=== PATIENT | female | born 1975 | race African-American/Black ===

== ENCOUNTER 2019-03-23 16:38 | Inpatient (IN) ==
[2019-03-23] MEDS ORDERED: MAGNESIUM SULF RIDER 4 GM in PREMIX 1 EACH IV PRN (19:02)
[2019-03-23] MEDS ORDERED: MAGNESIUM SULF RIDER 2 GM in PREMIX 1 EACH IV PRN (19:02)
[2019-03-23] MEDS ORDERED: hydrALAZINE 20 MG/1 ML VIAL IV PRN (19:11)
[2019-03-23 20:02] LABS: Basophils # 0.1 10*3/uL (0.0-0.2); Basophils % 0.5 % (0.0-0.8); Eosinophils # 0.1 10*3/uL (0.0-0.87); Eosinophils % 0.5 % (0.00-10.9); Hematocrit 29.8 VOL% (35.7-47.0); Hemoglobin 8.8 GM/DL (12.0-16.0); Immature Granulocytes % 0.5 %; Immature Granulocytes Absolute 0.06 #; Lymphocytes # 2.4 10*3/uL (1.4-4.0); Lymphocytes % 21.6 % (21.3-54.2); Mean Corpuscular HGB Conc 29.5 GM/DL (32-36); Mean Corpuscular Volume 71.8 FL (87-102); Monocytes % 6.4 % (1.7-12.7); Neutrophils % 70.5 % (38.7-73.9); Platelet Count 360 T/CUMM (130-400); Red Blood Count 4.15 MC/CUMM (3.8-5.5); Red Cell Distribution Width 18.4 % (9.3-17.3); White Blood Count 11.2 T/CUMM (4-12)
[2019-03-23 20:31] LABS: Albumin 3.1 G/DL (3.4-5.0); Bilirubin,Total 0.8 MG/DL (0.2-1.0); Calcium 8.2 MG/DL (8.5-10.1); Osmolality,Calculated 272.8 MOS/KG (273-304); Thyroid Stimulating Hormone 0.339 uIU/ml (0.358-3.74); Total Protein 6.6 G/DL (6.4-8.3)
[2019-03-23] MEDS: CIPROFLOXACIN INJ 400 MG in PREMIX 1 EACH IV SCH (20:34)
[2019-03-23] MEDS: SODIUM CHLORIDE 0.45% 1,000 ML IV SCH (20:34)
[2019-03-23] MEDS: ENOXAPARIN 40 MG/0.4 ML SYRINGE SUBCUT SCH (20:35)
[2019-03-23] MEDS: POTASSIUM CHLORIDE RIDER 10 MEQ in PREMIX 1 EACH IV PRN ×2 (22:04→23:13)
[2019-03-23] MEDS: METOCLOPRAMIDE 10 MG/2 ML VIAL IV SCH (23:12)
[2019-03-24] MEDS: POTASSIUM CHLORIDE RIDER 10 MEQ in PREMIX 1 EACH IV PRN ×6 (00:10→23:24)
[2019-03-24 05:36] LABS: Apearance,Urine CLEAR (Clear); Bilirubin,Urine Negative (Negative); Blood, Urine Negative (Negative); Glucose,Urine (UA) Negative (Negative); Ketones,Urine 20 mg/dL (Negative); Mucus,Urine Occasional /LPF (Occasional); Nitrite,Urine Negative (Negative); Protein,Urine Negative; RBC,Urine <1 /HPF (0-4); Squamous Epithelial Cell,Urine Occasional /HPF (0-10); Urine Color Yellow (Yellow); Urine Specific Gravity > 1.060 (1.001-1.035); Urine Urobilinogen < 2.0 EU/DL (0.2-1.0); WBC,Urine 1 /HPF (0-6)
[2019-03-24] MEDS: METOCLOPRAMIDE 10 MG/2 ML VIAL IV SCH ×4 (06:00→23:22)
[2019-03-24] MEDS: SODIUM CHLORIDE 0.45% 1,000 ML IV SCH ×3 (06:00→22:00)
[2019-03-24 06:45] LABS: Basophils # 0.1 10*3/uL (0.0-0.2); Basophils % 0.9 % (0.0-0.8); Eosinophils # 0.2 10*3/uL (0.0-0.87); Eosinophils % 1.6 % (0.00-10.9); Hematocrit 29.1 VOL% (35.7-47.0); Hemoglobin 8.4 GM/DL (12.0-16.0); Immature Granulocytes % 0.6 %; Immature Granulocytes Absolute 0.06 #; Lymphocytes # 3.3 10*3/uL (1.4-4.0); Lymphocytes % 35.2 % (21.3-54.2); Mean Corpuscular HGB Conc 28.9 GM/DL (32-36); Mean Corpuscular Volume 72.9 FL (87-102); Mean Platelet Volume 10.4 FL (9.6-12.0); Monocytes % 6.4 % (1.7-12.7); Neutrophils % 55.3 % (38.7-73.9); Platelet Count 347 T/CUMM (130-400); Red Blood Count 3.99 MC/CUMM (3.8-5.5); Red Cell Distribution Width 18.6 % (9.3-17.3); White Blood Count 9.3 T/CUMM (4-12)
[2019-03-24 07:14] LABS: Anisocytosis 2+; Hypochromasia 3+; Microcytosis 2+; Ovalocytes Few; Polychromasia Few
[2019-03-24 07:15] LABS: Platelet Estimate Normal
[2019-03-24 07:16] LABS: Albumin 2.8 G/DL (3.4-5.0); Bilirubin,Total 0.9 MG/DL (0.2-1.0); Calcium 8.4 MG/DL (8.5-10.1); Osmolality,Calculated 268.1 MOS/KG (273-304); Risk Ratio 3.63; Total Protein 6.1 G/DL (6.4-8.3)
[2019-03-24] MEDS: CIPROFLOXACIN INJ 400 MG in PREMIX 1 EACH IV SCH (09:15)
[2019-03-24] MEDS: PANTOPRAZOLE 40 MG VIAL IV SCH (09:16)
[2019-03-24] MEDS: PROMETHAZINE 25 MG/1 ML VIAL IM PRN (18:06)
[2019-03-24] MEDS: ENOXAPARIN 40 MG/0.4 ML SYRINGE SUBCUT SCH (20:45)
[2019-03-24] MEDS: ONDANSETRON 4 MG/2 ML VIAL IV PRN (20:51)
[2019-03-24] MEDS: MORPHINE 4 MG/1 ML VIAL IV PRN (21:33)
[2019-03-25] MEDS: POTASSIUM CHLORIDE RIDER 10 MEQ in PREMIX 1 EACH IV PRN ×8 (00:27→20:02)
[2019-03-25] MEDS: SODIUM CHLORIDE 0.45% 1,000 ML IV SCH ×5 (01:16→20:22)
[2019-03-25] MEDS: METOCLOPRAMIDE 10 MG/2 ML VIAL IV SCH ×4 (05:25→23:39)
[2019-03-25] MEDS: ONDANSETRON 4 MG/2 ML VIAL IV PRN (06:03)
[2019-03-25 06:29] LABS: Basophils # 0.1 10*3/uL (0.0-0.2); Basophils % 0.7 % (0.0-0.8); Eosinophils # 0.1 10*3/uL (0.0-0.87); Eosinophils % 0.8 % (0.00-10.9); Hematocrit 30.7 VOL% (35.7-47.0); Hemoglobin 8.9 GM/DL (12.0-16.0); Immature Granulocytes % 0.6 %; Immature Granulocytes Absolute 0.06 #; Lymphocytes # 2.6 10*3/uL (1.4-4.0); Lymphocytes % 27.3 % (21.3-54.2); Mean Corpuscular Volume 73.4 FL (87-102); Mean Platelet Volume 9.9 FL (9.6-12.0); Monocytes % 6.6 % (1.7-12.7); Platelet Count 348 T/CUMM (130-400); Red Blood Count 4.18 MC/CUMM (3.8-5.5); Red Cell Distribution Width 18.5 % (9.3-17.3); White Blood Count 9.5 T/CUMM (4-12)
[2019-03-25 06:44] LABS: Basophils # 0.1 10*3/uL (0.0-0.2); Basophils % 0.7 % (0.0-0.8); Eosinophils # 0.1 10*3/uL (0.0-0.87); Eosinophils % 0.9 % (0.00-10.9); Hematocrit 30.6 VOL% (35.7-47.0); Hemoglobin 8.9 GM/DL (12.0-16.0); Immature Granulocytes % 0.6 %; Immature Granulocytes Absolute 0.06 #; Lymphocytes # 2.7 10*3/uL (1.4-4.0); Mean Corpuscular HGB Conc 29.1 GM/DL (32-36); Mean Corpuscular Volume 73.2 FL (87-102); Mean Platelet Volume 10.3 FL (9.6-12.0); Monocytes % 6.3 % (1.7-12.7); Neutrophils % 63.5 % (38.7-73.9); Platelet Count 345 T/CUMM (130-400); Red Blood Count 4.18 MC/CUMM (3.8-5.5); Red Cell Distribution Width 18.7 % (9.3-17.3); White Blood Count 9.6 T/CUMM (4-12)
[2019-03-25 07:02] LABS: Albumin 2.8 G/DL (3.4-5.0); Bilirubin,Total 0.8 MG/DL (0.2-1.0); Calcium 7.7 MG/DL (8.5-10.1); Osmolality,Calculated 274.4 MOS/KG (273-304); Total Protein 6.1 G/DL (6.4-8.3)
[2019-03-25 07:05] LABS: % Iron Saturation 7.1 % (18-50); Ferritin 9.5 ng/ml (8-252)
[2019-03-25 08:32] LABS: Anisocytosis Slight; Band Neutrophils 3 % (0-10); Eosinophils 2 % (0-10); Lymphocytes 29 % (20-55); Platelet Estimate Normal; Segmented Neutrophils 61 % (50-85); Total Cells Counted 100
[2019-03-25] MEDS: PANTOPRAZOLE 40 MG VIAL IV SCH (08:57)
[2019-03-25 11:13] LABS: Sedimentation Rate-Westergren 14 MM/HR (0-20)
[2019-03-25] MEDS ORDERED: IRON SUCROSE 300 MG in SODIUM CHLORIDE 0.9% 100 ML IV ONE (14:30)
[2019-03-25] MEDS: AZITHROMYCIN INJ 500 MG in SODIUM CHLORIDE 0.9% 250 ML IV SCH (15:27)
[2019-03-25] MEDS: LISINOPRIL/HCTZ 20-12.5 MG TABLET PO SCH (15:27)
[2019-03-25] MEDS: MORPHINE 4 MG/1 ML VIAL IV PRN (18:01)
[2019-03-25] MEDS: PROMETHAZINE 25 MG/1 ML VIAL IM PRN (18:02)
[2019-03-25] MEDS: ENOXAPARIN 40 MG/0.4 ML SYRINGE SUBCUT SCH (20:23)
[2019-03-26] MEDS: ONDANSETRON 4 MG/2 ML VIAL IV PRN (03:29)
[2019-03-26] MEDS: MORPHINE 4 MG/1 ML VIAL IV PRN (03:29)
[2019-03-26] MEDS: SODIUM CHLORIDE 0.45% 1,000 ML IV SCH ×4 (03:37→21:54)
[2019-03-26 05:22] LABS: Basophils # 0.1 10*3/uL (0.0-0.2); Basophils % 0.8 % (0.0-0.8); Eosinophils # 0.1 10*3/uL (0.0-0.87); Eosinophils % 1.4 % (0.00-10.9); Hematocrit 32.2 VOL% (35.7-47.0); Hemoglobin 9.4 GM/DL (12.0-16.0); Immature Granulocytes % 0.8 %; Immature Granulocytes Absolute 0.07 #; Lymphocytes % 22.5 % (21.3-54.2); Mean Corpuscular HGB Conc 29.2 GM/DL (32-36); Mean Corpuscular Volume 73.7 FL (87-102); Mean Platelet Volume 10.1 FL (9.6-12.0); Monocytes % 7.1 % (1.7-12.7); Neutrophils % 67.4 % (38.7-73.9); Platelet Count 368 T/CUMM (130-400); Red Blood Count 4.37 MC/CUMM (3.8-5.5); Red Cell Distribution Width 18.6 % (9.3-17.3); White Blood Count 8.7 T/CUMM (4-12)
[2019-03-26] MEDS: METOCLOPRAMIDE 10 MG/2 ML VIAL IV SCH ×3 (05:39→17:51)
[2019-03-26 05:47] LABS: Albumin 3.2 G/DL (3.4-5.0); Bilirubin,Total 0.8 MG/DL (0.2-1.0); Calcium 8.8 MG/DL (8.5-10.1); Total Protein 6.8 G/DL (6.4-8.3)
[2019-03-26] MEDS: POTASSIUM CHLORIDE RIDER 10 MEQ in PREMIX 1 EACH IV PRN ×4 (07:56→13:38)
[2019-03-26 08:57] LABS: Hemoglobin A1 (Alkaline) 97.2 % (96.5-98.5); Hemoglobin A2 (Alkaline) 2.8 % (1.5-3.5)
[2019-03-26] MEDS: LISINOPRIL/HCTZ 20-12.5 MG TABLET PO SCH (10:41)
[2019-03-26] MEDS: PANTOPRAZOLE 40 MG VIAL IV SCH (10:42)
[2019-03-26] MEDS: AZITHROMYCIN INJ 500 MG in SODIUM CHLORIDE 0.9% 250 ML IV SCH (15:01)
[2019-03-26 17:18] LABS: Folate 6.9 NG/ML (5.4-24.0); Vitamin B12 510 PG/ML (211-911)
[2019-03-27] MEDS: METOCLOPRAMIDE 10 MG/2 ML VIAL IV SCH ×3 (01:14→11:54)
[2019-03-27] MEDS: SODIUM CHLORIDE 0.45% 1,000 ML IV SCH ×2 (03:00→13:15)
[2019-03-27 05:44] LABS: Calcium 7.7 MG/DL (8.5-10.1); Osmolality,Calculated 270.8 MOS/KG (273-304)
[2019-03-27 05:59] LABS: Free T4 (Free Thyroxine) 1.45 NG/DL (0.76-1.46); Thyroid Stimulating Hormone 1.08 uIU/ml (0.358-3.74)
[2019-03-27] MEDS ORDERED: LACTATED RINGERS 1,000 ML IV SCH (08:00)
[2019-03-27] MEDS ORDERED: propofoL 200 MG/20 ML VIAL IV ONE (10:00)
[2019-03-27] MEDS ORDERED: LIDOCAINE 2% 5 ML VIAL ONE (10:00)
[2019-03-27 11:37] VITALS: BP 118/68
[2019-03-27] MEDS: LISINOPRIL/HCTZ 20-12.5 MG TABLET PO SCH (11:54)
[2019-03-27] MEDS: PANTOPRAZOLE 40 MG VIAL IV SCH (11:58)
[2019-03-27] MEDS ORDERED: CHOLECALCIFEROL 1,000 UNIT TABLET PO SCH (13:00)
[2019-03-27] MEDS: AZITHROMYCIN INJ 500 MG in SODIUM CHLORIDE 0.9% 250 ML IV SCH (13:14)
[2019-03-27] MEDS ORDERED: METOCLOPRAMIDE 10 MG TABLET PO SCH (16:30)
[2019-03-27] MEDS ORDERED: PANTOPRAZOLE 40 MG TABLET PO SCH (21:00)
[2019-03-28] MEDS ORDERED: AZITHROMYCIN 250 MG TABLET PO SCH (09:00)
[2019-03-28 15:41] LABS: Free Thyroxine Index 8.6 mcg/dL (4.8 - 12.7)
== END 2019-03-27 14:20 | disposition home or self-care (01) | DRG 392 ==
LOC: SUATTDRO 18:13 → N.5E 18:13
PROVIDERS: ADMIT Internal Medicine; ATTEND Hospitalist

== ENCOUNTER 2019-08-05 14:35 | Observation (INO) ==
[2019-08-05 15:41] LABS: Basophils # 0.1 10*3/uL (0.0-0.2); Basophils % 0.6 % (0.0-0.8); Eosinophils % 0.3 % (0.00-10.9); Hematocrit 38.5 VOL% (35.7-47.0); Hemoglobin 11.3 GM/DL (12.0-16.0); Immature Granulocytes % 0.5 %; Immature Granulocytes Absolute 0.06 #; Lymphocytes # 1.8 10*3/uL (1.4-4.0); Lymphocytes % 15.4 % (21.3-54.2); Mean Corpuscular HGB Conc 29.4 GM/DL (32-36); Mean Corpuscular Volume 73.1 FL (87-102); Mean Platelet Volume 9.8 FL (9.6-12.0); Monocytes % 5.4 % (1.7-12.7); Neutrophils % 77.8 % (38.7-73.9); Platelet Count 498 T/CUMM (130-400); Red Blood Count 5.27 MC/CUMM (3.8-5.5); Red Cell Distribution Width 19.7 % (9.3-17.3); White Blood Count 11.9 T/CUMM (4-12)
[2019-08-05 16:01] LABS: Apearance,Urine CLEAR (Clear); Bacteria,Urine Occasional /HPF (Few); Bilirubin,Urine Negative (Negative); Blood, Urine Moderate mg/dL (Negative); Glucose,Urine (UA) Negative (Negative); Ketones,Urine 80 mg/dL (Negative); Mucus,Urine Few /LPF (Occasional); Nitrite,Urine Negative (Negative); Protein,Urine 30 MG/DL; RBC,Urine 2 /HPF (0-4); Squamous Epithelial Cell,Urine Occasional /HPF (0-10); Urine Color Yellow (Yellow); Urine Specific Gravity 1.033 (1.001-1.035); WBC,Urine 2 /HPF (0-6)
[2019-08-05 16:12] LABS: Albumin 4.3 G/DL (3.4-5.0); Bilirubin,Total 1.4 MG/DL (0.2-1.0); Calcium 10.2 MG/DL (8.5-10.1); Osmolality,Calculated 267.4 MOS/KG (273-304); Total Protein 9.2 G/DL (6.4-8.3)
[2019-08-05] MEDS ORDERED: MORPHINE 4 MG/1 ML VIAL IV STA (16:14)
[2019-08-05] MEDS ORDERED: ONDANSETRON 4 MG/2 ML VIAL IV STA ×2 (16:15→19:37)
[2019-08-05] MEDS ORDERED: PROMETHAZINE 25 MG/1 ML VIAL IM PRN (18:04)
[2019-08-05] MEDS ORDERED: GLUCAGON 1 MG VIAL IM PRN (18:04)
[2019-08-05] MEDS ORDERED: DEXTROSE 50% 25 GM/50 ML VIAL IV PRN (18:04)
[2019-08-05] MEDS ORDERED: hydrALAZINE 20 MG/1 ML VIAL IV PRN (18:10)
[2019-08-05] MEDS ORDERED: POTASSIUM CHLORIDE 20 MEQ TABLET PO PRN (18:13)
[2019-08-05] MEDS ORDERED: SODIUM CHLORIDE 0.9% 1,000 ML IV SCH (18:30)
[2019-08-05] MEDS: MORPHINE 4 MG/1 ML VIAL IV PRN (20:40)
[2019-08-05] MEDS: ENOXAPARIN 40 MG/0.4 ML SYRINGE SUBCUT SCH (20:41)
[2019-08-05] MEDS: DEXT 5% NACL 0.45% KCL 40 MEQ 40 MEQ/1,000 ML BAG IV SCH (20:41)
[2019-08-05] MEDS ORDERED: NITROGLYCERIN SL 0.4 MG TABLET SL ONE (23:28)
[2019-08-05] MEDS ORDERED: ASPIRIN CHEW 81 MG TABLET PO ONE (23:28)
[2019-08-05] MEDS: ONDANSETRON 4 MG/2 ML VIAL IV PRN (23:30)
[2019-08-05] MEDS ORDERED: NITROGLYCERIN SL 0.4 MG TABLET SL PRN (23:34)
[2019-08-05] MEDS ORDERED: LORazepam 2 MG/1 ML VIAL ONE (23:36)
[2019-08-06] MEDS ORDERED: ASPIRIN CHEW 81 MG TABLET PO ONE
[2019-08-06] MEDS ORDERED: LORazepam 2 MG/1 ML VIAL IV ONE
[2019-08-06] MEDS ORDERED: METOPROLOL TARTRATE 5 MG/5 ML VIAL IV ONE (00:25)
[2019-08-06] MEDS ORDERED: ADENOSINE 6 MG/2 ML VIAL IV ONE ×2 (00:30→00:40)
[2019-08-06] MEDS ORDERED: ACETAMINOPHEN 325 MG TABLET PO PRN (00:33)
[2019-08-06] MEDS ORDERED: LABETALOL 20 MG/4 ML SYRINGE IV PRN (03:16)
[2019-08-06] MEDS ORDERED: LABETALOL 100 MG/20 ML VIAL IV PRN (07:30)
[2019-08-06 08:39] LABS: Basophils # 0.1 10*3/uL (0.0-0.2); Basophils % 0.5 % (0.0-0.8); Eosinophils # 0.1 10*3/uL (0.0-0.87); Eosinophils % 1.3 % (0.00-10.9); Hematocrit 34.6 VOL% (35.7-47.0); Immature Granulocytes % 0.5 %; Immature Granulocytes Absolute 0.05 #; Lymphocytes # 2.6 10*3/uL (1.4-4.0); Lymphocytes % 26.7 % (21.3-54.2); Mean Corpuscular HGB Conc 29.5 GM/DL (32-36); Mean Platelet Volume 9.9 FL (9.6-12.0); Monocytes % 7.7 % (1.7-12.7); Neutrophils % 63.3 % (38.7-73.9); Platelet Count 418 T/CUMM (130-400); Red Blood Count 4.74 MC/CUMM (3.8-5.5); Red Cell Distribution Width 19.5 % (9.3-17.3); White Blood Count 9.6 T/CUMM (4-12)
[2019-08-06 08:40] LABS: Hemoglobin 10.2 GM/DL (12.0-16.0)
[2019-08-06 08:47] LABS: Albumin 3.5 G/DL (3.4-5.0); Bilirubin,Total 0.9 MG/DL (0.2-1.0); Calcium 9.3 MG/DL (8.5-10.1); Osmolality,Calculated 268.4 MOS/KG (273-304); Total Protein 7.7 G/DL (6.4-8.3)
[2019-08-06] MEDS: METOCLOPRAMIDE 10 MG TABLET PO SCH ×3 (08:54→21:47)
[2019-08-06] MEDS: PANTOPRAZOLE 40 MG TABLET PO SCH ×2 (08:54→21:47)
[2019-08-06] MEDS ORDERED: LISINOPRIL/HCTZ 20-12.5 MG TABLET PO SCH (09:00)
[2019-08-06] MEDS: ONDANSETRON 4 MG/2 ML VIAL IV PRN ×2 (09:44→15:09)
[2019-08-06] MEDS: DEXT 5% NACL 0.45% KCL 40 MEQ 40 MEQ/1,000 ML BAG IV SCH (09:45)
[2019-08-06] MEDS: METOPROLOL TARTRATE 25 MG TABLET PO SCH ×2 (15:09→21:46)
[2019-08-06 15:52] LABS: Barbiturates Screen,Urine Negative (Negative); Benzodiazepines Screen,Urine Negative (Negative); Cannabinoid Screen,Urine Positive (Negative); Opiate Screen,Urine Positive (Negative); Phencyclidine Screen,Urine Negative (Negative)
[2019-08-06] MEDS: ENOXAPARIN 40 MG/0.4 ML SYRINGE SUBCUT SCH (21:46)
[2019-08-07 08:14] LABS: Calcium 9.1 MG/DL (8.5-10.1); Osmolality,Calculated 267.4 MOS/KG (273-304)
[2019-08-07 08:28] LABS: Basophils # 0.1 10*3/uL (0.0-0.2); Basophils % 0.8 % (0.0-0.8); Eosinophils # 0.2 10*3/uL (0.0-0.87); Eosinophils % 2.1 % (0.00-10.9); Hematocrit 34.6 VOL% (35.7-47.0); Immature Granulocytes % 0.4 %; Immature Granulocytes Absolute 0.04 #; Lymphocytes # 2.9 10*3/uL (1.4-4.0); Lymphocytes % 32.4 % (21.3-54.2); Mean Corpuscular HGB Conc 29.8 GM/DL (32-36); Mean Corpuscular Volume 73.9 FL (87-102); Mean Platelet Volume 10.2 FL (9.6-12.0); Monocytes % 6.4 % (1.7-12.7); Neutrophils % 57.9 % (38.7-73.9); Platelet Count 455 T/CUMM (130-400); Red Blood Count 4.68 MC/CUMM (3.8-5.5); Red Cell Distribution Width 19.2 % (9.3-17.3)
[2019-08-07 08:29] LABS: Hemoglobin 10.3 GM/DL (12.0-16.0)
[2019-08-07 08:34] LABS: Hypochromasia 1+; Ovalocytes Slight; Platelet Estimate Adequate
[2019-08-07] MEDS ORDERED: METOPROLOL TARTRATE 25 MG TABLET PO SCH (09:00)
[2019-08-07] MEDS ORDERED: lisinopriL 20 MG TABLET PO SCH (09:00)
[2019-08-07] MEDS ORDERED: METOPROLOL TARTRATE 50 MG TABLET PO SCH (09:00)
[2019-08-07] MEDS ORDERED: POTASSIUM CHLORIDE 20 MEQ TABLET PO ONE (10:49)
[2019-08-07] MEDS ORDERED: MAGNESIUM SULF RIDER 2 GM in PREMIX 1 EACH IV ONE (10:49)
[2019-08-07] MEDS: METOCLOPRAMIDE 10 MG TABLET PO SCH ×2 (12:09→16:26)
[2019-08-07] MEDS: PANTOPRAZOLE 40 MG TABLET PO SCH (12:10)
[2019-08-07] MEDS: ONDANSETRON 4 MG/2 ML VIAL IV PRN ×2 (14:52→17:43)
[2019-08-07] MEDS: MORPHINE 4 MG/1 ML VIAL IV PRN (14:53)
[2019-08-07 16:06] VITALS: BP 121/71
== END 2019-08-07 20:31 | disposition home or self-care (01) ==
LOC: N.EDINP 14:35 → N.ED 14:35 → SUATTDRO 18:04 → N.EDINP 19:45 → N.3E 20:19
PROVIDERS: ADMIT Internal Medicine; ATTEND Internal Medicine

== ENCOUNTER 2019-11-18 23:14 | Observation (INO) ==
[2019-11-18] MEDS ORDERED: SODIUM CHLORIDE 0.9% 1,000 ML IV STA (23:33)
[2019-11-18] MEDS ORDERED: METOCLOPRAMIDE 10 MG/2 ML VIAL IV STA (23:33)
[2019-11-18] MEDS ORDERED: POTASSIUM CHLORIDE 20 MEQ TABLET PO STA (23:35)
[2019-11-19 00:38] LABS: Basophils # 0.1 10*3/uL (0.0-0.2); Basophils % 0.4 % (0.0-0.8); Eosinophils # 0.1 10*3/uL (0.0-0.87); Eosinophils % 0.5 % (0.00-10.9); Hematocrit 35.6 VOL% (35.7-47.0); Immature Granulocytes % 0.6 %; Immature Granulocytes Absolute 0.08 #; Lymphocytes # 2.2 10*3/uL (1.4-4.0); Lymphocytes % 17.4 % (21.3-54.2); Mean Corpuscular HGB Conc 29.2 GM/DL (32-36); Mean Corpuscular Volume 71.9 FL (87-102); Mean Platelet Volume 9.8 FL (9.6-12.0); Monocytes % 6.2 % (1.7-12.7); Neutrophils % 74.9 % (38.7-73.9); Platelet Count 475 T/CUMM (130-400); Red Blood Count 4.95 MC/CUMM (3.8-5.5); Red Cell Distribution Width 18.1 % (9.3-17.3); White Blood Count 12.3 T/CUMM (4-12)
[2019-11-19 00:41] LABS: Hemoglobin 10.4 GM/DL (12.0-16.0)
[2019-11-19 00:59] LABS: Albumin 3.7 G/DL (3.4-5.0); Bilirubin,Total 1.1 MG/DL (0.2-1.0); Osmolality,Calculated 275.8 MOS/KG (273-304); Total Protein 7.7 G/DL (6.4-8.3)
[2019-11-19] MEDS: SODIUM CHLOR 0.9% KCL 40 MEQ 40 MEQ/1,000 ML BAG IV SCH ×2 (04:40→15:39)
[2019-11-19] MEDS: ENOXAPARIN 40 MG/0.4 ML SYRINGE SUBCUT SCH (04:40)
[2019-11-19 07:37] LABS: Albumin 3.4 G/DL (3.4-5.0); Bilirubin,Total 1.1 MG/DL (0.2-1.0); Calcium 8.8 MG/DL (8.5-10.1); Osmolality,Calculated 275.8 MOS/KG (273-304); Total Protein 7.2 G/DL (6.4-8.3)
[2019-11-19 09:46] LABS: Basophils # 0.1 10*3/uL (0.0-0.2); Basophils % 0.7 % (0.0-0.8); Eosinophils # 0.2 10*3/uL (0.0-0.87); Eosinophils % 1.4 % (0.00-10.9); Hemoglobin 9.9 GM/DL (12.0-16.0); Immature Granulocytes % 0.5 %; Immature Granulocytes Absolute 0.05 #; Lymphocytes # 2.6 10*3/uL (1.4-4.0); Lymphocytes % 23.8 % (21.3-54.2); Mean Corpuscular Volume 72.4 FL (87-102); Mean Platelet Volume 9.8 FL (9.6-12.0); Monocytes % 6.5 % (1.7-12.7); Neutrophils % 67.1 % (38.7-73.9); Platelet Count 420 T/CUMM (130-400); Red Blood Count 4.56 MC/CUMM (3.8-5.5); Red Cell Distribution Width 18.1 % (9.3-17.3); White Blood Count 10.7 T/CUMM (4-12)
[2019-11-19] MEDS: PANTOPRAZOLE 40 MG VIAL IV SCH ×2 (10:43→21:33)
[2019-11-20] MEDS: ENOXAPARIN 40 MG/0.4 ML SYRINGE SUBCUT SCH (02:10)
[2019-11-20] MEDS: SODIUM CHLOR 0.9% KCL 40 MEQ 40 MEQ/1,000 ML BAG IV SCH (04:25)
[2019-11-20 05:38] LABS: Basophils # 0.1 10*3/uL (0.0-0.2); Eosinophils # 0.2 10*3/uL (0.0-0.87); Eosinophils % 2.6 % (0.00-10.9); Hematocrit 28.7 VOL% (35.7-47.0); Hemoglobin 8.4 GM/DL (12.0-16.0); Immature Granulocytes % 0.4 %; Immature Granulocytes Absolute 0.03 #; Lymphocytes # 2.6 10*3/uL (1.4-4.0); Lymphocytes % 36.8 % (21.3-54.2); Mean Corpuscular HGB Conc 29.3 GM/DL (32-36); Mean Corpuscular Volume 73.6 FL (87-102); Mean Platelet Volume 9.9 FL (9.6-12.0); Monocytes % 5.5 % (1.7-12.7); Neutrophils % 53.7 % (38.7-73.9); Platelet Count 352 T/CUMM (130-400); Red Cell Distribution Width 17.4 % (9.3-17.3); White Blood Count 6.9 T/CUMM (4-12)
[2019-11-20 06:06] LABS: Calcium 8.6 MG/DL (8.5-10.1); Osmolality,Calculated 276.5 MOS/KG (273-304)
[2019-11-20] MEDS ORDERED: POTASSIUM CHLORIDE 20 MEQ TABLET PO PRN (07:40)
[2019-11-20] MEDS: PANTOPRAZOLE 40 MG VIAL IV SCH (08:59)
[2019-11-20 11:22] VITALS: BP 128/75
== END 2019-11-20 16:46 | disposition home or self-care (01) ==
LOC: EDBD → EDUNIT# → N.EDINP 23:14 → N.ED 23:14 → SUATTDRO 11-19 03:14 → N.3E 11-19 04:41
PROVIDERS: ADMIT Internal Medicine; ATTEND Internal Medicine Geriatric Medicine